=== PATIENT | female | born 1940 | race Native Hawaiian/Other Pacific Islander ===

== ENCOUNTER 2016-12-24 22:30 | Emergency (ER) | payer MEDICARE ==
[2016-12-24 22:30] VITALS: BMI 21.7
[2016-12-24 23:19] VITALS: BP 156/77; PULSE 58; RESP 20; TEMP 98.7; O2SAT 98
[2016-12-24 23:58] LABS: BASO # 0.1 K/uL (0.0-0.2); BASO % 1.4 % (0.0-2.0); EOS # 0.3 K/uL (0.0-0.7); EOS % 6.5 % (0.0-4.0); HEMATOCRIT 36.7 % (34.0-47.0); LYMPH # 1.4 K/uL (1.0-4.3); LYMPH % 30.9 % (20.0-40.0); MEAN CELL VOLUME 93.8 fL (81.0-99.0); MEAN CORPUSCULAR HEMOGLOBIN 32.2 pg (27.0-31.0); MEAN CORPUSCULAR HGB CONC 34.4 g/dL (33.0-37.0); MEAN PLATELET VOLUME 7.6 fL (7.2-11.7); MONO # 0.4 K/uL (0.0-0.8); MONO % 9.3 % (0.0-10.0); RED CELL DISTRIBUTION WIDTH 12.8 % (11.5-14.5); WHITE BLOOD COUNT 4.6 K/uL (4.8-10.8)
[2016-12-25 00:04] LABS: CHLORIDE 91 mmol/L (98-107); POTASSIUM 4.2 mmol/L (3.6-5.2); SODIUM 126 mmol/L (132-148)
[2016-12-25 00:06] LABS: AST/SGOT 25 U/L (14-36); BILIRUBIN,TOTAL 0.8 mg/dL (0.2-1.3); CARBON DIOXIDE 26 mmol/L (22-30); GFR AFRICAN-AMERICAN > 60
[2016-12-25 00:07] LABS: ALB/GLOB RATIO 1.6 (1.0-2.1); ALKALINE PHOSPHATASE 57 U/L (38-126); ALT/SGPT 36 U/L (9-52); BLOOD UREA NITROGEN 9 mg/dL (7-17); CALCIUM 9.2 mg/dl (8.6-10.4); GLUCOSE,RANDOM 111 mg/dL (65-105); TOTAL PROTEIN 6.9 g/dL (6.3-8.3)
--- NOTE | 2016-12-25 20:27 | C.PDOC ---
Chief Complaint (Nursing): Chest Pain Past Medical History Vital Signs: Last Vital Signs Temp 98.7 F 12/24/16 23:15 Pulse 58 L 12/24/16 23:15 Resp 20 12/24/16 23:15 BP 156/77 H 12/24/16 23:15 Pulse Ox 98 12/25/16 20:27 - Medical History PMH: Arthritis, Gastritis, HTN, Hypercholesterolemia Denies: Chronic Kidney Disease - [facility] Procedures ESOPHAGOGASTRODUODENOSCOPY [EGD] W/CLOSED BIOPSY (01/25/15) Family History: States: Unknown Family Hx - Social History Hx Tobacco Use: No Hx Alcohol Use: No Hx Substance Use: No - Immunization History Hx Tetanus Toxoid Vaccination: Yes Hx Influenza Vaccination: Yes Hx Pneumococcal Vaccination: Yes ED Course And Treatment - Laboratory Results Result Diagrams: 12/24/16 23:51 12/24/16 23:51 O2 Sat by Pulse Oximetry: 98 Disposition Counseled Patient/Family Regarding: Diagnosis - Disposition Referrals: [facility] [Outside] Disposition: HOME/ ROUTINE Disposition Time: 05:00 Condition: STABLE Instructions: Noncardiac Chest Pain (ED) - POA Present On Arrival: None - Clinical Impression Clinical Impression: Chest discomfort
[2016-12-26 06:44] LABS: URINE BILIRUBIN NEGATIVE (NEGATIVE); URINE COLOR STRAW (YELLOW); URINE GLUCOSE (UA) Normal (Normal); URINE KETONE TRACE mg/dL (NEGATIVE)
[2016-12-26 06:45] LABS: RBC URINE < 1 /hpf (0-3); URINE BACTERIA RARE (<OCC); URINE BLOOD NEGATIVE (NEGATIVE); URINE LEUKOCYTE ESTERASE NEGATIVE Leu/uL (Negative); URINE PROTEIN NEGATIVE (NEGATIVE); URINE UROBILINOGEN Normal mg/dL (0.2-1.0)
--- NOTE | 2017-01-13 13:48 | CARD ---
APPROVED REPORT EKG Measurement Heart [id number] IL 134P [id number] <Conclusion> Sinus bradycardia with marked sinus arrhythmia Otherwise normal ECG
== END 2016-12-25 05:00 | disposition home or self-care (01) ==
LOC: C.ER 22:30
DX: R07.89 Other chest pain (principal)

== ENCOUNTER 2017-09-03 07:15 | Emergency (ER) | payer MEDICARE ==
[2017-09-03 07:34] VITALS: BMI 20.5
[2017-09-03 07:38] VITALS: RESP 20
--- NOTE | 2017-09-03 08:23 | C.PDOC ---
History Of Present Illness 76 yr old female presents to the ER for evaluation of blood in stool after using the bathroom this morning. Patient states she used the bathroom around 4am and saw blood in the toilet bowl. Afterwards, she states she had her breakfast as usual and went again to the bathroom and noticed spotting upon wiping but no blood in the bowl. Patient also states she has had abdominal pain on and off for a while, had it checked and all results were normal. Patient denies fever, chills, nausea, vomiting, diarrhea, dysuria, incontinence, weakness or numbness. Also reports had a colonoscopy 2 years ago and was normal. PMD: Dr. Maloney Time Seen by Provider: 09/03/17 07:40 Chief Complaint (Nursing): GI Problem History Per: Patient History/Exam Limitations: no limitations Onset/Duration Of Symptoms: Sudden Onset (since morning) Radiation Of Pain To:: None Past Medical History Reviewed: Historical Data, Nursing Documentation, Vital Signs Vital Signs: Last Vital Signs Temp 98.8 F 09/03/17 07:34 Pulse 52 L 09/03/17 07:34 Resp 20 09/03/17 07:34 BP 114/69 09/03/17 07:34 Pulse Ox 100 09/03/17 10:43 - Medical History PMH: Arthritis, Gastritis, HTN, Hypercholesterolemia - [facility] Procedures ESOPHAGOGASTRODUODENOSCOPY [EGD] W/CLOSED BIOPSY (01/25/15) Family History: States: No Known Family Hx - Social History Hx Tobacco Use: No Hx Alcohol Use: No Hx Substance Use: No - Immunization History Hx Tetanus Toxoid Vaccination: Yes Hx Influenza Vaccination: Yes Hx Pneumococcal Vaccination: Yes Review Of Systems Except As Marked, All Systems Reviewed And Found Negative. Constitutional: Negative for: Fever, Chills Gastrointestinal: Positive for: Other ((+) blood with stool). Negative for: Nausea, Vomiting, Diarrhea Genitourinary: Negative for: Dysuria, Incontinence Neurological: Negative for: Weakness, Numbness Physical Exam - Physical Exam Appears: Non-toxic, No Acute Distress Skin: Warm, Dry, No Rash Head: Atraumatic, Normacephalic Oral Mucosa: Moist Cardiovascular: Rhythm Regular, No Murmur Respiratory: Normal Breath Sounds, No Rales, No Rhonchi, No Stridor, No Wheezing Gastrointestinal/Abdominal: Normal Exam, Soft, No Tenderness, No Guarding, No Rebound Rectal: Other (Normal sphincter tone. Speck of bright red blood noted in brown stool. Hemoccult is positive. No gross bleeding.) Extremity: Normal ROM, No Swelling Neurological/Psych: Oriented x3, Normal Speech, Normal Motor ED Course And Treatment - Laboratory Results Result Diagrams: 09/03/17 08:23 09/03/17 08:23 O2 Sat by Pulse Oximetry: 100 (RA) Pulse Ox Interpretation: Normal Medical Decision Making Medical Decision Making: IMPRESSIONS: Rectal bleeding PLAN: * CBC * CMP * Protonix IVP NOTE: * Patient physical exam is normal. 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 Watts office. Patient will be seen in office today at 1pm. * Patient is stable for discharge home. Disposition Discussed With : Erlin Watts Counseled Patient/Family Regarding: Diagnosis, Need For Followup, Rx Given - Disposition Disposition: HOME/ ROUTINE Disposition Time: 10:28 Condition: STABLE Additional Instructions: see Dr. Watts today at 1028 am take medication as prescribed return to ER if symptoms worsens or progress Prescriptions: Pantoprazole Sodium [Protonix] 40 mg PO DAILY #10 ect Instructions: Rectal Bleeding (ED) Forms: [facility] (Belarusian), General Discharge Instructions - Clinical Impression Clinical Impression: Hemorrhoids, Rectal bleed - Scribe Statement The provider has reviewed the documentation as recorded by the Zeb Pace Provider Attestation: All medical record entries made by the Zeb were at my direction and personally dictated by me. I have reviewed the chart and agree that the record accurately reflects my personal performance of the history, physical exam, medical decision making, and the department course for this patient. I have also personally directed, reviewed, and agree with the discharge instructions and disposition.
[2017-09-03 08:28] LABS: BASO % 1.1 % (0.0-2.0); EOS # 0.2 K/uL (0.0-0.7); EOS % 4.8 % (0.0-4.0); HEMOGLOBIN 11.8 g/dL (11.0-16.0); LYMPH # 1.1 K/uL (1.0-4.3); LYMPH % 26.1 % (20.0-40.0); MEAN CELL VOLUME 97.2 fL (81.0-99.0); MEAN CORPUSCULAR HEMOGLOBIN 34.5 pg (27.0-31.0); MEAN CORPUSCULAR HGB CONC 35.5 g/dL (33.0-37.0); MEAN PLATELET VOLUME 7.3 fL (7.2-11.7); MONO # 0.4 K/uL (0.0-0.8); MONO % 10.7 % (0.0-10.0); NEUT # 2.4 K/uL (1.8-7.0); NEUT % 57.3 % (50.0-75.0); NRBC % 0.1 % (0.0-2.0); RBC 3.41 Mil/uL (3.80-5.20); WHITE BLOOD COUNT 4.2 K/uL (4.8-10.8)
[2017-09-03 08:41] LABS: ALBUMIN 3.6 g/dL (3.5-5.0); ALT/SGPT 61 U/L (9-52); AST/SGOT 39 U/L (14-36); BLOOD UREA NITROGEN 12 mg/dL (7-17); GFR AFRICAN-AMERICAN > 60; GFR NON-AFRICAN AMERICAN > 60; LIPASE 66 U/L (23-300)
[2017-09-03 08:43] LABS: PROTHROMBIN TIME 11.2 SECONDS (9.7-12.2)
[2017-09-03 08:51] LABS: ALB/GLOB RATIO 1.4 (1.0-2.1)
[2017-09-03] MEDS ORDERED: Sodium Chloride 0.9% 1,000 ML IV ONE (08:58)
[2017-09-03 11:10] VITALS: BP 152/80; PULSE 63; TEMP 98.2; O2SAT 98
== END 2017-09-03 11:21 | disposition home or self-care (01) ==
LOC: C.ER 07:15
DX: K64.9 Unspecified hemorrhoids (principal); I10 Essential (primary) hypertension; E78.00 Pure hypercholesterolemia, unspecified
CPT/HCPCS: 80053; 83690; 85025; 85610; 85730; 96361; 96374; 99285; C9113; J7040

== ENCOUNTER 2017-09-23 20:11 | Observation (INO) | payer MEDICARE ==
[2017-09-23 20:11] VITALS: BMI 20.5
[2017-09-23 20:22] VITALS: RESP 20
--- NOTE | 2017-09-23 21:21 | C.PDOC ---
History Of Present Illness 76-year-old female, presents to the emergency department with complaints of several episodes of non-bilious/non-bloody vomiting developed today after drinking "GoLYTELY" to prepare for a scheduled colonoscopy tomorrow. Patient denies fevers, chills, chest pain, shortness of breath, diarrhea, back pain, incontinence, or any other associated symptoms. No other complaints at this time. Time Seen by Provider: 09/23/17 20:53 Chief Complaint (Nursing): GI Problem History Per: Patient History/Exam Limitations: no limitations Onset/Duration Of Symptoms: Days Current Symptoms Are (Timing): Still Present Severity: Moderate Past Medical History Reviewed: Historical Data, Nursing Documentation, Vital Signs Vital Signs: Last Vital Signs Temp 97.6 F 09/23/17 20: Pulse 54 L 09/23/17 20:18 Resp 20 09/23/17 20:18 BP 150/79 09/23/17 20:18 Pulse Ox 99 09/23/17 21:42 - Medical History PMH: Arthritis, Gastritis, HTN, Hypercholesterolemia Denies: Chronic Kidney Disease - [facility] Procedures ESOPHAGOGASTRODUODENOSCOPY [EGD] W/CLOSED BIOPSY (01/25/15) Family History: States: No Known Family Hx - Social History Hx Tobacco Use: No Hx Alcohol Use: No Hx Substance Use: No - Immunization History Hx Tetanus Toxoid Vaccination: Yes Hx Influenza Vaccination: Yes Hx Pneumococcal Vaccination: Yes Review Of Systems Constitutional: Negative for: Fever, Chills Cardiovascular: Negative for: Chest Pain, Palpitations Respiratory: Negative for: Shortness of Breath Gastrointestinal: Positive for: Nausea, Vomiting. Negative for: Abdominal Pain , Diarrhea Musculoskeletal: Negative for: Back Pain Physical Exam - Physical Exam Appears: Non-toxic, No Acute Distress Skin: Warm, Dry, No Rash Head: Normacephalic Eye(s): bilateral: PERRL Nose: Normal Oral Mucosa: Moist Lips: Normal Appearing Neck: Normal ROM Cardiovascular: Rhythm Regular, No Murmur Respiratory: Normal Breath Sounds, No Accessory Muscle Use Gastrointestinal/Abdominal: Soft, No Tenderness, No Guarding, No Rebound Extremity: Normal ROM Neurological/Psych: Oriented x3, Normal Speech ED Course And Treatment - Laboratory Results Result Diagrams: 09/23/17 21:29 09/23/17 22:09 Lab Interpretation: Abnormal (Na 125, K+ 3.5, BUN 6, Cr 0.4) O2 Sat by Pulse Oximetry: 99 (RA) Pulse Ox Interpretation: Normal Reevaluation Time: 23:13 Reassessment Condition: Improved - Physician Consult Information Time Consulting Physician Contacted: 23:13 Physician Contacted: Derrick Maloney Outcome Of Conversation: Patient to be kept on his service for observation for vomiting and hyponatremia. Medical Decision Making Medical Decision Making: Plan: * CMP, Lipase * CBC * UA * Reassess and Disposition Disposition - Disposition Disposition: HOSPITALIZED Disposition Time: 23:14 Condition: STABLE - POA Present On Arrival: None - Clinical Impression Clinical Impression: Vomiting, Hyponatremia - Scribe Statement The provider has reviewed the documentation as recorded by the Scribe (Bakari Petty) All medical record entries made by the Scribe were at my direction and personally dictated by me. I have reviewed the chart and agree that the record accurately reflects my personal performance of the history, physical exam, medical decision making, and the department course for this patient. I have also personally directed, reviewed, and agree with the discharge instructions and disposition.
[2017-09-23 21:36] LABS: BASO % 1.2 % (0.0-2.0); EOS # 0.1 K/uL (0.0-0.7); EOS % 2.9 % (0.0-4.0); HEMOGLOBIN 13.1 g/dL (11.0-16.0); LYMPH # 1.3 K/uL (1.0-4.3); LYMPH % 30.9 % (20.0-40.0); MEAN CELL VOLUME 96.9 fL (81.0-99.0); MEAN CORPUSCULAR HEMOGLOBIN 32.9 pg (27.0-31.0); MEAN PLATELET VOLUME 7.9 fL (7.2-11.7); MONO # 0.3 K/uL (0.0-0.8); MONO % 7.2 % (0.0-10.0); NEUT # 2.5 K/uL (1.8-7.0); NEUT % 57.8 % (50.0-75.0); RBC 3.99 Mil/uL (3.80-5.20); RED CELL DISTRIBUTION WIDTH 11.7 % (11.5-14.5); WHITE BLOOD COUNT 4.2 K/uL (4.8-10.8)
[2017-09-23 22:28] LABS: ALB/GLOB RATIO 1.3 (1.0-2.1); ALBUMIN 3.9 g/dL (3.5-5.0); ALT/SGPT 36 U/L (9-52); AST/SGOT 24 U/L (14-36); BLOOD UREA NITROGEN 6 mg/dL (7-17); CALCIUM 8.7 mg/dl (8.6-10.4); GFR AFRICAN-AMERICAN > 60; GFR NON-AFRICAN AMERICAN > 60; LIPASE 69 U/L (23-300)
[2017-09-23 22:49] LABS: URINE BILIRUBIN NEGATIVE (NEGATIVE); URINE BLOOD NEGATIVE (NEGATIVE); URINE CLARITY Clear (Clear); URINE COLOR Yellow (YELLOW); URINE GLUCOSE (UA) NORMAL (Normal); URINE LEUKOCYTE ESTERASE NEG Leu/uL (Negative); URINE NITRATE NEGATIVE (NEGATIVE); URINE PROTEIN NEGATIVE (NEGATIVE); URINE UROBILINOGEN NORMAL mg/dL (0.2-1.0)
[2017-09-24] MEDS: Sodium Chloride 0.9% 1,000 ML IV SCH ×3 (00:11→17:25)
[2017-09-24 07:21] LABS: ALB/GLOB RATIO 1.4 (1.0-2.1); ALT/SGPT 32 U/L (9-52); AST/SGOT 21 U/L (14-36); BLOOD UREA NITROGEN 6 mg/dL (7-17); CALCIUM 9.2 mg/dl (8.6-10.4); GFR AFRICAN-AMERICAN > 60; GFR NON-AFRICAN AMERICAN > 60
[2017-09-24 07:24] LABS: OSMOLALITY,URINE 471 mosm/kg (300-1000)
[2017-09-24] MEDS: Enoxaparin 40 mg Syringe SC SCH (10:52)
[2017-09-24] MEDS: Pantoprazole 40 mg EC Tab PO SCH (10:52)
[2017-09-24] MEDS: Brimonidine 0.2% Opth Sol (5ml) OU SCH ×3 (10:53→17:24)
--- NOTE | 2017-09-24 11:25 | CP.PCM.CON ---
History of Present Illness - History of Present Illness History of Present Illness: ASked to see patietn by PMD for vomiting. Pt started prep for colonsocpy yesterday. Drank 2 glassses and developed N/V- multiple. [place] weak and BP was elevated. Today- Less nausea. Was having lower abdom pain for few weeks- now improving. PMH- HTN, fatty liver. Review of Systems - Constitutional Constitutional: Weakness. absent: Weight Gain - EENT Eyes: absent: Photophobia - Cardiovascular Cardiovascular: absent: Chest Pain, Dyspnea, Leg Edema, Syncope - Respiratory Respiratory: absent: Hemoptysis, Wheezing - Gastrointestinal Gastrointestinal: Abdominal Pain, Constipation, Nausea, Vomiting. absent: Coffee Ground Emesis, Diarrhea, Dysphagia, Hematemesis, Hematochezia, Loose Stools, Melena - Genitourinary Genitourinary: absent: Flank Pain, Hematuria - Musculoskeletal Musculoskeletal: absent: Muscle Cramps - Integumentary Integumentary: absent: Jaundice - Neurological Neurological: absent: Convulsions Past Patient History - Infectious Disease Hx of Infectious Diseases: None - Tetanus Immunizations Tetanus Immunization: Unknown - Past Medical History & Family History Past Medical History?: Yes - Past Social History Smoking Status: Never Smoked - CARDIAC Hx Hypercholesterolemia: Yes Hx Hypertension: Yes - PULMONARY Hx Respiratory Disorders: No - NEUROLOGICAL Hx Neurological Disorder: No - HEENT Hx HEENT Problems: Yes Hx Cataracts: Yes - RENAL Hx Chronic Kidney Disease: No - ENDOCRINE/METABOLIC Hx Endocrine Disorders: No - HEMATOLOGICAL/ONCOLOGICAL Hx Blood Disorders: No - INTEGUMENTARY Hx Dermatological Problems: No - MUSCULOSKELETAL/RHEUMATOLOGICAL Hx Arthritis: Yes - GASTROINTESTINAL Hx Gastritis: Yes - GENITOURINARY/GYNECOLOGICAL Hx Genitourinary Disorders: No - PSYCHIATRIC Hx Substance Use: No - SURGICAL HISTORY Hx Surgeries: Yes Hx Cataract Extraction: Yes (B/L 4 YRS AGO) Hx Orthopedic Surgery: Yes (R. KNEE MENISCUS REPAIR 2004) - ANESTHESIA Hx Anesthesia: Yes Hx Anesthesia Reactions: No Hx Malignant Hyperthermia: No Meds Allergies/Adverse Reactions: Allergies Allergy/AdvReac Type Severity Reaction Status Date / Time No Known Allergies Allergy Verified 09/03/17 07:28 - Medications Medications: Current Medications Bisoprolol Fumarate (Zebeta) 5 mg PO DAILY [facility] Last Admin: 09/24/17 11:15 Dose: Not Given Brimonidine Tartrate (Alphagan 0.2% Opht) 0 ml OU TID [facility] Last Admin: 09/24/17 10:53 Dose: Not Given Enoxaparin Sodium (Lovenox) 40 mg SC DAILY [facility] Last Admin: 09/24/17 10:52 Dose: 40 mg Sodium Chloride (Sodium Chloride 0.9%) 1,000 mls @ 80 mls/hr IV .[id number] [facility] Last Admin: 09/24/17 00:11 Dose: 80 mls/hr Lorazepam (Ativan) 0.5 mg PO DAILY PRN PRN Reason: Anxiety Losartan Potassium (Cozaar) 50 mg PO DAILY [facility] Last Admin: 09/24/17 10:53 Dose: 50 mg Ondansetron HCl (Zofran Inj) 4 mg IVP Q6 PRN PRN Reason: Nausea/Vomiting Last Admin: 09/24/17 00:28 Dose: 4 mg Pantoprazole Sodium (Protonix Ec Tab) 40 mg PO DAILY [facility] Last Admin: 09/24/17 10:52 Dose: 40 mg Rosuvastatin Calcium (Crestor) 5 mg PO HS [facility] Timolol Maleate (Timoptic 0.5% Ophth Soln) 0 drop OU BID [facility] Last Admin: 09/24/17 10:53 Dose: Not Given Physical Exam - Constitutional Appears: Well - Respiratory Exam Respiratory Exam: Clear to Auscultation Bilateral - Cardiovascular Exam Cardiovascular Exam: RRR - GI/Abdominal Exam GI & Abdominal Exam: Normal Bowel Sounds, Soft. absent: Guarding, Mass, Rebound , Tenderness - Extremities Exam Extremities exam: Negative for: pedal edema - Neurological Exam Neurological exam: Alert, Oriented x3 Results - Vital Signs Recent Vital Signs: Last Vital Signs Temp 98.5 F 09/24/17 09:13 Pulse 60 09/24/17 09:13 Resp 20 09/24/17 09:13 BP 157/72 H 09/24/17 09:13 Pulse Ox 99 09/24/17 09:13 - Labs Result Diagrams: 09/23/17 21:29 09/24/17 06:59 Labs: Laboratory Results - last 24 hr 09/23/17 09/23/17 09/23/17 21:29 22:09 22:43 WBC 4.2 L RBC 3.99 Hgb 13.1 Hct 38.6 MCV 96.9 MCH 32.9 H MCHC 34.0 RDW 11.7 Plt Count 251 MPV 7.9 Neut % (Auto) 57.8 Lymph % (Auto) 30.9 [place] % (Auto) 7.2 Eos % (Auto) 2.9 Baso % (Auto) 1.2 Neut # (Auto) 2.5 Lymph # (Auto) 1.3 [place] # (Auto) 0.3 Eos # (Auto) 0.1 Baso # (Auto) 0.0 Sodium 125 L Potassium 3.5 L Chloride 88 L Carbon Dioxide 29 Anion Gap 12 BUN 6 L Creatinine 0.4 L Est GFR ( Amer) > 60 Est GFR (Non-Af Amer) > 60 Random Glucose 107 H Serum Osmolality Calcium 8.7 Total Bilirubin 1.2 AST 24 ALT 36 Alkaline Phosphatase 65 Total Protein 6.9 Albumin 3.9 Globulin 3.0 Albumin/Globulin Ratio 1.3 Lipase 69 Urine Color Yellow Urine Clarity Clear Urine pH 8.0 Ur Specific [place] 1.010 Urine Protein Negative Urine Glucose (UA) Normal Urine Ketones 1+ H Urine Blood Negative Urine Nitrate Negative Urine Bilirubin Negative Urine Urobilinogen Normal Ur Leukocyte Esterase Neg Urine WBC (Auto) 1 Urine RBC (Auto) 1 Urine Osmolality Ur Random Sodium 09/24/17 09/24/17 09/24/17 00:59 06:59 06:59 WBC RBC Hgb Hct MCV MCH MCHC RDW Plt Count MPV Neut % (Auto) Lymph % (Auto) [place] % (Auto) Eos % (Auto) Baso % (Auto) Neut # (Auto) Lymph # (Auto) [place] # (Auto) Eos # (Auto) Baso # (Auto) Sodium 128 L Potassium 3.5 L Chloride 94 L Carbon Dioxide 26 Anion Gap 11 BUN 6 L Creatinine 0.4 L Est GFR ( Amer) > 60 Est GFR (Non-Af Amer) > 60 Random Glucose 92 Serum Osmolality 276 Calcium 9.2 Total Bilirubin 1.1 AST 21 ALT 32 Alkaline Phosphatase 72 Total Protein 6.8 Albumin 4.0 Globulin 2.8 Albumin/Globulin Ratio 1.4 Lipase Urine Color Urine Clarity Urine pH Ur Specific [place] Urine Protein Urine Glucose (UA) Urine Ketones Urine Blood Urine Nitrate Urine Bilirubin Urine Urobilinogen Ur Leukocyte Esterase Urine WBC (Auto) Urine RBC (Auto) Urine Osmolality 471 Ur Random Sodium 160 Assessment & Plan (1) Constipation Assessment and Plan: chronic Status: Acute (2) Esophageal reflux Status: Acute (3) Hyponatremia Assessment and Plan: Na- 125 Status: Acute (4) Vomiting Status: Acute (5) Abdominal pain Assessment and Plan: Consdier spasms. Pain is improving. Consider due to constipation. Patient does not want to have a colonoscopy now or in future. Status: Acute (6) Hypokalemia Status: Acute
[2017-09-24] MEDS: Potassium Chloride 20 mEq ER Tab PO SCH (15:24)
--- NOTE | 2017-09-24 19:28 | CP.PCM.HP ---
History of Present Illness - History of Present Illness History of Present Illness: 76 years old [place] female complaining of several bout of vomiting yesterday.after drinking GoLYTELY in prerparation for a colonoscopy today. She felt weak with an elevated BP. Inthe ED her serum Na+: 125. She also had few episodes of soft stools./She is known to have a HPTN, a hypercholesterolemia and a bordeline DM. She denies any cigarette smoking, any alcohol abuse. A colonoscopy was scheduled because hypogastrin pain on and off for the past few months. Present on Admission - Present on Admission Any Indicators Present on Admission: No Past Patient History - Infectious Disease Hx of Infectious Diseases: None - Tetanus Immunizations Tetanus Immunization: Unknown - Past Medical History & Family History Past Medical History?: Yes - Past Social History Smoking Status: Never Smoked Alcohol: None Drugs: Denies Home Situation {Lives}: Alone Domestic Violence: Negative - CARDIAC Hx Hypercholesterolemia: Yes Hx Hypertension: Yes - PULMONARY Hx Respiratory Disorders: No - NEUROLOGICAL Hx Neurological Disorder: No - HEENT Hx HEENT Problems: Yes Hx Cataracts: Yes - RENAL Hx Chronic Kidney Disease: No - ENDOCRINE/METABOLIC Hx Endocrine Disorders: No - HEMATOLOGICAL/ONCOLOGICAL Hx Blood Disorders: No - INTEGUMENTARY Hx Dermatological Problems: No - MUSCULOSKELETAL/RHEUMATOLOGICAL Hx Arthritis: Yes (R knee meniscus repair) - GASTROINTESTINAL Hx Gastritis: Yes - GENITOURINARY/GYNECOLOGICAL Hx Genitourinary Disorders: No - PSYCHIATRIC Hx Anxiety: Yes Hx Substance Use: No - SURGICAL HISTORY Hx Surgeries: Yes Hx Cataract Extraction: Yes (B/L 4 YRS AGO) Hx Orthopedic Surgery: Yes (R. KNEE MENISCUS REPAIR 2004) - ANESTHESIA Hx Anesthesia: Yes Hx Anesthesia Reactions: No Hx Malignant Hyperthermia: No Meds Allergies/Adverse Reactions: Allergies Allergy/AdvReac Type Severity Reaction Status Date / Time No Known Allergies Allergy Verified 09/03/17 07:28 Physical Exam - Constitutional Appears: Non-toxic, No Acute Distress - Head Exam Head Exam: NORMAL INSPECTION - Eye Exam Eye Exam: Normal appearance - ENT Exam ENT Exam: Normal Exam - Neck Exam Neck exam: Positive for: Normal Inspection - Respiratory Exam Respiratory Exam: Clear to Auscultation Bilateral, NORMAL BREATHING PATTERN - Cardiovascular Exam Cardiovascular Exam: REGULAR RHYTHM - GI/Abdominal Exam GI & Abdominal Exam: Normal Bowel Sounds, Soft - Rectal Exam Rectal Exam: Deferred - Exam Exam: NORMAL INSPECTION - Extremities Exam Extremities exam: Positive for: normal inspection - Back Exam Back exam: NORMAL INSPECTION - Neurological Exam Neurological exam: Alert, Normal Gait, Oriented x3 - Psychiatric Exam Psychiatric exam: Anxious - Skin Skin Exam: Dry, Intact, Normal Color, Warm Results - Vital Signs Recent Vital Signs: Last Vital Signs Temp 98.5 F 09/24/17 09:13 Pulse 67 09/24/17 15:15 Resp 20 09/24/17 09:13 BP 157/72 H 09/24/17 09:13 Pulse Ox 97 09/24/17 16:50 - Labs Result Diagrams: 09/23/17 21:29 09/24/17 06:59 Labs: Laboratory Results - last 24 hr 09/23/17 09/23/17 09/23/17 21:29 22:09 22:43 WBC 4.2 L RBC 3.99 Hgb 13.1 Hct 38.6 MCV 96.9 MCH 32.9 H MCHC 34.0 RDW 11.7 Plt Count 251 MPV 7.9 Neut % (Auto) 57.8 Lymph % (Auto) 30.9 [place] % (Auto) 7.2 Eos % (Auto) 2.9 Baso % (Auto) 1.2 Neut # (Auto) 2.5 Lymph # (Auto) 1.3 [place] # (Auto) 0.3 Eos # (Auto) 0.1 Baso # (Auto) 0.0 Sodium 125 L Potassium 3.5 L Chloride 88 L Carbon Dioxide 29 Anion Gap 12 BUN 6 L Creatinine 0.4 L Est GFR ( Amer) > 60 Est GFR (Non-Af Amer) > 60 Random Glucose 107 H Serum Osmolality Calcium 8.7 Total Bilirubin 1.2 AST 24 ALT 36 Alkaline Phosphatase 65 Total Protein 6.9 Albumin 3.9 Globulin 3.0 Albumin/Globulin Ratio 1.3 Lipase 69 Urine Color Yellow Urine Clarity Clear Urine pH 8.0 Ur Specific [place] 1.010 Urine Protein Negative Urine Glucose (UA) Normal Urine Ketones 1+ H Urine Blood Negative Urine Nitrate Negative Urine Bilirubin Negative Urine Urobilinogen Normal Ur Leukocyte Esterase Neg Urine WBC (Auto) 1 Urine RBC (Auto) 1 Urine Osmolality Ur Random Sodium 09/24/17 09/24/17 09/24/17 00:59 06:59 06:59 WBC RBC Hgb Hct MCV MCH MCHC RDW Plt Count MPV Neut % (Auto) Lymph % (Auto) [place] % (Auto) Eos % (Auto) Baso % (Auto) Neut # (Auto) Lymph # (Auto) [place] # (Auto) Eos # (Auto) Baso # (Auto) Sodium 128 L Potassium 3.5 L Chloride 94 L Carbon Dioxide 26 Anion Gap 11 BUN 6 L Creatinine 0.4 L Est GFR ( Amer) > 60 Est GFR (Non-Af Amer) > 60 Random Glucose 92 Serum Osmolality 276 Calcium 9.2 Total Bilirubin 1.1 AST 21 ALT 32 Alkaline Phosphatase 72 Total Protein 6.8 Albumin 4.0 Globulin 2.8 Albumin/Globulin Ratio 1.4 Lipase Urine Color Urine Clarity Urine pH Ur Specific [place] Urine Protein Urine Glucose (UA) Urine Ketones Urine Blood Urine Nitrate Urine Bilirubin Urine Urobilinogen Ur Leukocyte Esterase Urine WBC (Auto) Urine RBC (Auto) Urine Osmolality 471 Ur Random Sodium 160 Assessment & Plan (1) Hyponatremia Assessment and Plan: REplace Na+ with IV NS. Status: Acute (2) Hypokalemia Assessment and Plan: Replace K+ with KDur. Status: Acute (3) Vomiting Assessment and Plan: Secodary to GOLYTELY. Status: Acute Decision To Admit - Pt Status Changed To: Hospital Disposition Of: Observation - . Bed Request Type: Regular Admitting Physician: Derrick Maloney
[2017-09-25] MEDS: Sodium Chloride 0.9% 1,000 ML IV SCH ×2 (01:00→06:08)
[2017-09-25 08:02] LABS: ALB/GLOB RATIO 1.3 (1.0-2.1); ALBUMIN 3.7 g/dL (3.5-5.0); ALT/SGPT 25 U/L (9-52); AST/SGOT 35 U/L (14-36); BLOOD UREA NITROGEN 8 mg/dL (7-17); CALCIUM 8.6 mg/dl (8.6-10.4); GFR AFRICAN-AMERICAN > 60; GFR NON-AFRICAN AMERICAN > 60
[2017-09-25 09:05] VITALS: TEMP 98.5
[2017-09-25] MEDS: Pantoprazole 40 mg EC Tab PO SCH (09:10)
[2017-09-25] MEDS: Potassium Chloride 20 mEq ER Tab PO SCH (09:11)
[2017-09-25] MEDS: Brimonidine 0.2% Opth Sol (5ml) OU SCH ×2 (09:12→14:09)
[2017-09-25] MEDS: Enoxaparin 40 mg Syringe SC SCH (09:13)
[2017-09-25 15:18] VITALS: BP 149/73; PULSE 62; O2SAT 97
== END 2017-09-25 15:09 | disposition home or self-care (01) ==
LOC: C.ER 20:11 → C.3T 23:15
PROVIDERS: ADMIT Internal Medicine Cardiovascular Disease; ATTEND Internal Medicine Cardiovascular Disease
DX: E87.1 Hypo-osmolality and hyponatremia (principal); R11.2 Nausea with vomiting, unspecified; I10 Essential (primary) hypertension; E78.00 Pure hypercholesterolemia, unspecified; M19.90 Unspecified osteoarthritis, unspecified site; K76.0 Fatty (change of) liver, not elsewhere classified; K59.00 Constipation, unspecified; K21.9 Gastro-esophageal reflux disease without esophagitis; R10.9 Unspecified abdominal pain; E87.6 Hypokalemia; R73.03 Prediabetes; F41.9 Anxiety disorder, unspecified
CPT/HCPCS: 36415; 80053; 81001; 83036; 83690; 83930; 83935; 84300; 85025; 96372; 96374; 97110; 97116; 97162; 97530; 99285; G0378; G8978; G8979; J1650; J2405; J7040

== ENCOUNTER 2018-11-29 14:28 | Observation (INO) | payer MEDICARE ==
[2018-11-29 14:29] VITALS: BMI 20.5
[2018-11-29 15:41] LABS: BASO % 0.7 % (0.0-2.0); EOS # 0.1 K/uL (0.0-0.7); EOS % 2.2 % (0.0-4.0); HEMOGLOBIN 13.8 g/dL (11.0-16.0); LYMPH # 1.4 K/uL (1.0-4.3); LYMPH % 27.5 % (20.0-40.0); MEAN CELL VOLUME 97.4 fL (81.0-99.0); MEAN CORPUSCULAR HEMOGLOBIN 33.1 pg (27.0-31.0); MEAN PLATELET VOLUME 7.4 fL (7.2-11.7); MONO # 0.5 K/uL (0.0-0.8); MONO % 9.2 % (0.0-10.0); NEUT # 3.1 K/uL (1.8-7.0); NEUT % 60.4 % (50.0-75.0); RBC 4.18 Mil/uL (3.80-5.20); RED CELL DISTRIBUTION WIDTH 12.8 % (11.5-14.5); WHITE BLOOD COUNT 5.1 K/uL (4.8-10.8)
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
[2018-11-29 15:54] LABS: PROTHROMBIN TIME 10.9 SECONDS (9.7-12.2)
[2018-11-29 16:00] LABS: ALB/GLOB RATIO 1.6 (1.0-2.1); ALBUMIN 4.2 g/dL (3.5-5.0); ALT/SGPT 14 U/L (9-52); AST/SGOT 32 U/L (14-36); BLOOD UREA NITROGEN 14 mg/dL (7-17); CALCIUM 9.8 mg/dl (8.6-10.4); GFR NON-AFRICAN AMERICAN > 60
[2018-11-29 16:10] LABS: CK-MB 1.19 ng/mL (0.0-3.38)
--- NOTE | 2018-11-29 16:19 | CT ---
Date of service: 11/29/2018 PROCEDURE: CT HEAD WITHOUT CONTRAST. HISTORY: syncope, fall COMPARISON: Noncontrast head CT performed 10/24/14 TECHNIQUE: Axial computed tomography images were obtained through the head/brain without intravenous contrast. Radiation dose: Total exam DLP = 1075.88 mGy-cm. This CT exam was performed using one or more of the following dose reduction techniques: Automated exposure control, adjustment of the mA and/or kV according to patient size, and/or use of iterative reconstruction technique. FINDINGS: HEMORRHAGE: No intracranial hemorrhage. BRAIN: Diffuse atrophy with prominence of the ventricles and sulci noted. No mass effect or edema. Intracranial atherosclerosis. Mild to moderate scattered periventricular and subcortical white matter hypodensities, which are nonspecific, but often seen with chronic microvascular ischemic disease. Please note that MRI with diffusion imaging is more sensitive in the detection of acute ischemic event. VENTRICLES: No hydrocephalus. CALVARIUM: Unremarkable. PARANASAL SINUSES: Unremarkable as visualized. No significant inflammatory changes. MASTOID AIR CELLS: Unremarkable as visualized. No inflammatory changes. OTHER FINDINGS: None. IMPRESSION: Generalized atrophy. Mild to moderate scattered nonspecific white matter changes.
--- NOTE | 2018-11-29 16:54 | RAD ---
Date of service: 11/29/2018 PROCEDURE: CHEST RADIOGRAPH, 1 VIEW HISTORY: syncope COMPARISON: Comparison is made with 01/23/2016 FINDINGS: LUNGS: Reticular opacities in the lungs likely represent: Clunk changes. No evidence of new consolidation. PLEURA: No pneumothorax or pleural fluid seen. CARDIOVASCULAR: No aortic atherosclerotic calcification present. Normal. OSSEOUS STRUCTURES: No significant abnormalities. VISUALIZED UPPER ABDOMEN: Normal. OTHER FINDINGS: None. IMPRESSION: No active disease.
--- NOTE | 2018-11-29 17:25 | RAD ---
Date of service: 11/29/2018 PROCEDURE: Radiographs of the Lumbar Spine. HISTORY: fall COMPARISON: None available. FINDINGS: BONES: Alignment appears satisfactory. Osseous demineralization. Extensive degenerative changes most prominent at L4-L5. Anterior osteophyte formation. Facet hypertrophy. No acute displaced fracture identified. 10 mm anterolisthesis of L4 on L5. DISC SPACES: Intervertebral disc space narrowing. OTHER FINDINGS: None. IMPRESSION: Extensive multilevel degenerative changes. No acute displaced fracture identified. 10 mm anterolisthesis of L4 on L5.
[2018-11-29 18:15] LABS: SQUAMOUS EPITHIAL < 1 /hpf (0-5); URINE BACTERIA RARE (<OCC); URINE BILIRUBIN NEGATIVE (NEGATIVE); URINE BLOOD NEGATIVE (NEGATIVE); URINE CLARITY Clear (Clear); URINE COLOR Straw (YELLOW); URINE GLUCOSE (UA) NORMAL (Normal); URINE LEUKOCYTE ESTERASE NEG Leu/uL (Negative); URINE PROTEIN NEGATIVE (NEGATIVE); URINE UROBILINOGEN NORMAL mg/dL (0.2-1.0)
[2018-11-29 18:41] VITALS: RESP 20
--- NOTE | 2018-11-29 23:08 | CP.PCM.HP ---
History of Present Illness - History of Present Illness History of Present Illness: 77 years old female suddenly passed out at home, felt backward, hitting the back of her head and low back to the floor. Brought by ambulance to the ED, she denies any weakness, nausea, dizziness, palpitation. She is known to have a hyp ertension, a hypercholesterolemia, a glaucoma, a bordeline DM, a generalized osteoarthritis. In the ED, a head CT shows cerebral atrophy, a lumbar CT reveals osteoarthritis of the spine. ECG: sinus bradycardia, with no acute ST-T wave change. Present on Admission - Present on Admission Any Indicators Present on Admission: No Review of Systems - Neurological Neurological: Syncope - Psychiatric Psychiatric: Anxiety Past Patient History - Infectious Disease Hx of Infectious Diseases: None - Tetanus Immunizations Tetanus Immunization: Unknown - Past Medical History & Family History Past Medical History?: Yes - Past Social History Smoking Status: Never Smoked Alcohol: None Home Situation {Lives}: Alone - CARDIAC Hx Hypercholesterolemia: Yes Hx Hypertension: Yes - PULMONARY Hx Respiratory Disorders: No - NEUROLOGICAL Hx Neurological Disorder: No - HEENT Hx HEENT Problems: Yes Hx Cataracts: Yes - RENAL Hx Chronic Kidney Disease: No - ENDOCRINE/METABOLIC Hx Endocrine Disorders: No - HEMATOLOGICAL/ONCOLOGICAL Hx Blood Disorders: No - INTEGUMENTARY Hx Dermatological Problems: No - MUSCULOSKELETAL/RHEUMATOLOGICAL Hx Arthritis: Yes (R knee meniscus repair) - GASTROINTESTINAL Hx Gastritis: Yes - GENITOURINARY/GYNECOLOGICAL Hx Genitourinary Disorders: No - PSYCHIATRIC Hx Anxiety: Yes Hx Substance Use: No - SURGICAL HISTORY Hx Surgeries: Yes Hx Cataract Extraction: Yes (B/L 4 YRS AGO) Hx Orthopedic Surgery: Yes (R. KNEE MENISCUS REPAIR 2004) - ANESTHESIA Hx Anesthesia: Yes Hx Anesthesia Reactions: No Hx Malignant Hyperthermia: No Meds Allergies/Adverse Reactions: Allergies Allergy/AdvReac Type Severity Reaction Status Date / Time No Known Allergies Allergy Verified 09/03/17 07:28 Physical Exam - Constitutional Appears: Well, No Acute Distress - Head Exam Head Exam: NORMAL INSPECTION - Eye Exam Eye Exam: Normal appearance Pupil Exam: NORMAL ACCOMODATION - ENT Exam ENT Exam: Normal Exam - Neck Exam Neck exam: Positive for: Normal Inspection - Respiratory Exam Respiratory Exam: Clear to Auscultation Bilateral, NORMAL BREATHING PATTERN - Cardiovascular Exam Cardiovascular Exam: REGULAR RHYTHM - GI/Abdominal Exam GI & Abdominal Exam: Normal Bowel Sounds, Soft - Rectal Exam Rectal Exam: Deferred - Extremities Exam Extremities exam: Positive for: normal inspection - Back Exam Additional comments: Mild low back tenderness. - Psychiatric Exam Psychiatric exam: Anxious - Skin Skin Exam: Dry, Intact, Normal Color, Warm Results - Vital Signs Recent Vital Signs: Last Vital Signs Temp 98 F 11/29/18 18:39 Pulse 58 L 11/29/18 18:39 Resp 20 11/29/18 18:39 BP 136/60 11/29/18 18:39 Pulse Ox 100 11/29/18 18:39 - Labs Result Diagrams: 11/29/18 15:37 11/29/18 15:37 Labs: Laboratory Results - last 24 hr 11/29/18 11/29/18 11/29/18 15:37 15:37 15:37 WBC 5.1 RBC 4.18 Hgb 13.8 Hct 40.7 MCV 97.4 MCH 33.1 H MCHC 34.0 RDW 12.8 Plt Count 225 MPV 7.4 Neut % (Auto) 60.4 Lymph % (Auto) 27.5 [place] % (Auto) 9.2 Eos % (Auto) 2.2 Baso % (Auto) 0.7 Neut # (Auto) 3.1 Lymph # (Auto) 1.4 [place] # (Auto) 0.5 Eos # (Auto) 0.1 Baso # (Auto) 0.0 PT 10.9 INR 1.0 APTT 28.0 Sodium 132 Potassium 3.8 Chloride 100 Carbon Dioxide 24 Anion Gap 12 BUN 14 Creatinine 0.4 L Est GFR ( Amer) > 60 Est GFR (Non-Af Amer) > 60 Random Glucose 131 H D Calcium 9.8 Total Bilirubin 0.6 AST 32 ALT 14 Alkaline Phosphatase 76 Total Creatine Kinase 60 CK-MB (Mass) 1.19 Troponin I < 0.0120 Total Protein 6.9 Albumin 4.2 Globulin 2.7 Albumin/Globulin Ratio 1.6 Urine Color Urine Clarity Urine pH Ur Specific [place] Urine Protein Urine Glucose (UA) Urine Ketones Urine Blood Urine Nitrate Urine Bilirubin Urine Urobilinogen Ur Leukocyte Esterase Urine WBC (Auto) Urine RBC (Auto) Ur Squamous Epith Cells Urine Bacteria 11/29/18 17:57 WBC RBC Hgb Hct MCV MCH MCHC RDW Plt Count MPV Neut % (Auto) Lymph % (Auto) [place] % (Auto) Eos % (Auto) Baso % (Auto) Neut # (Auto) Lymph # (Auto) [place] # (Auto) Eos # (Auto) Baso # (Auto) PT INR APTT Sodium Potassium Chloride Carbon Dioxide Anion Gap BUN Creatinine Est GFR ( Amer) Est GFR (Non-Af Amer) Random Glucose Calcium Total Bilirubin AST ALT Alkaline Phosphatase Total Creatine Kinase CK-MB (Mass) Troponin I Total Protein Albumin Globulin Albumin/Globulin Ratio Urine Color Straw Urine Clarity Clear Urine pH 6.0 Ur Specific Indian 1.005 Urine Protein Negative Urine Glucose (UA) Normal Urine Ketones Negative Urine Blood Negative Urine Nitrate Negative Urine Bilirubin Negative Urine Urobilinogen Normal Ur Leukocyte Esterase Neg Urine WBC (Auto) 1 Urine RBC (Auto) 1 Ur Squamous Epith Cells < 1 Urine Bacteria Rare Assessment & Plan (1) Syncope Assessment and Plan: Etiology to be determined. Will order an MRI and MRA of the brain. Status: Acute (2) Head contusion Status: Acute (3) Hypertension Status: Acute Decision To Admit - Pt Status Changed To: Hospital Disposition Of: Observation - . Bed Request Type: Telemetry Admitting Physician: Derrick Maloney
[2018-11-30 07:56] LABS: FREE T4 1.19 ng/dL (0.78-2.19)
[2018-11-30 08:08] VITALS: O2SAT 98
[2018-11-30 08:17] LABS: PROLACTIN 28.4 ng/mL (3.0-18.9)
[2018-11-30] MEDS: Brimonidine 0.2% Opth Sol (5ml) OU SCH ×2 (09:38→18:12)
[2018-11-30] MEDS ORDERED: TIMOLOL OP SCH (10:00)
[2018-11-30] MEDS ORDERED: BRIMONIDINE TARTRATE OP SCH (10:00)
[2018-11-30] MEDS ORDERED: Pantoprazole 40 mg EC Tab PO SCH (10:00)
[2018-11-30] MEDS ORDERED: Enoxaparin 40 mg Syringe SC SCH (10:00)
--- NOTE | 2018-11-30 14:39 | CP.PCM.PN ---
Subjective - Date & Time of Evaluation Date of Evaluation: 11/30/18 Time of Evaluation: 14:36 - Subjective Subjective: Patient complaining of neck pain and headache. No nausea. Awaiting MRI of the head. Prolactin level slightly elevated. HgbA1C: 6.0 Objective - Vital Signs/Intake and Output Vital Signs (last 24 hours): Temp Pulse Resp BP Pulse Ox 98.1 F 55 L 20 168/78 H 98 11/30/18 07:00 11/30/18 07:30 11/30/18 07:00 11/30/18 07:00 11/30/18 07:00 Intake and Output: 11/30/18 11/30/18 06:59 18:59 Intake Total 120 Balance 120 - Medications Medications: Current Medications Acetaminophen (Tylenol 325mg Tab) 650 mg PO Q6 PRN PRN Reason: Pain, moderate (4-7) Aspirin (Ecotrin) 81 mg PO DAILY [facility] Last Admin: 11/30/18 09:41 Dose: 81 mg Bisoprolol Fumarate (Zebeta) 5 mg PO DAILY [facility] Last Admin: 11/30/18 09:42 Dose: 5 mg Brimonidine Tartrate (Alphagan 0.2% Opht) 0 ml OU BID [facility] Last Admin: 11/30/18 09:38 Dose: 1 drop Enoxaparin Sodium (Lovenox) 40 mg SC DAILY [facility] Last Admin: 11/30/18 09:42 Dose: Not Given Lorazepam (Ativan) 0.5 mg PO DAILY PRN PRN Reason: Anxiety Losartan Potassium (Cozaar) 50 mg PO DAILY [facility] Last Admin: 11/30/18 09:37 Dose: 50 mg Meclizine HCl (Antivert) 12.5 mg PO TID [facility] Last Admin: 11/30/18 13:30 Dose: 12.5 mg Pantoprazole Sodium (Protonix Ec Tab) 40 mg PO DAILY [facility] Last Admin: 11/30/18 09:41 Dose: 40 mg Rosuvastatin Calcium (Crestor) 5 mg PO HS [facility] Last Admin: 11/29/18 22:00 Dose: 5 mg Timolol Maleate (Timoptic 0.5% Ophth Soln) 0 drop OU BID [facility] Last Admin: 11/30/18 09:38 Dose: 1 drop - Labs Labs: 11/29/18 15:37 04/22/19 15:37 PT 10.9 SECONDS (9.7-12.2) 11/29/18 15:37 INR 1.0 11/29/18 15:37 APTT 28.0 SECONDS (21-34) 11/29/18 15:37 - Constitutional Appears: Well, No Acute Distress - Head Exam Head Exam: NORMAL INSPECTION - Eye Exam Eye Exam: Normal appearance Pupil Exam: NORMAL ACCOMODATION - ENT Exam ENT Exam: Normal Exam - Neck Exam Neck Exam: Normal Inspection - Respiratory Exam Respiratory Exam: Clear to Ausculation Bilateral, NORMAL BREATHING PATTERN - Cardiovascular Exam Cardiovascular Exam: REGULAR RHYTHM - GI/Abdominal Exam GI & Abdominal Exam: Soft - Rectal Exam Rectal Exam: Deferred - Exam Exam: NORMAL INSPECTION - Extremities Exam Extremities Exam: Normal Inspection - Back Exam Back Exam: NORMAL INSPECTION - Neurological Exam Neurological Exam: Alert, Awake, Oriented x3 - Psychiatric Exam Psychiatric exam: Anxious - Skin Skin Exam: Dry, Intact, Normal Color, Warm Assessment and Plan (1) Syncope Assessment & Plan: Awaiting MRI and MRA of the head. Status: Acute (2) Head contusion Status: Acute (3) Hypertension Status: Acute
[2018-11-30 17:24] VITALS: BP 176/71; PULSE 58; TEMP 97.9
== END 2018-11-30 19:20 | disposition home or self-care (01) ==
LOC: C.ER 14:28 → C.6T 16:47
PROVIDERS: ADMIT Internal Medicine Cardiovascular Disease; ATTEND Internal Medicine Cardiovascular Disease
DX: R55 Syncope and collapse (principal); S00.93XA Contusion of unspecified part of head, initial encounter; I10 Essential (primary) hypertension; E78.00 Pure hypercholesterolemia, unspecified; R73.03 Prediabetes; H40.9 Unspecified glaucoma; S33.5XXA Sprain of ligaments of lumbar spine, initial encounter; M47.9 Spondylosis, unspecified; G31.9 Degenerative disease of nervous system, unspecified; R00.1 Bradycardia, unspecified; F41.9 Anxiety disorder, unspecified; W18.30XA Fall on same level, unspecified, initial encounter
CPT/HCPCS: 36415; 70450; 71045; 72100; 80053; 80061; 81001; 82550; 82553; 82948; 83036; 84146; 84439; 84443; 84484; 85025; 85610; 85730; 99285; G0378